=== PATIENT | male | born 1955 | race Two or more races ===

== ENCOUNTER 2025-03-06 16:40 | Inpatient (IN) | payer MEDICARE, MEDICAID ==
[~2025-03-06] VITALS: Ht 190.5 cm; Wt 110.0 kg
[2025-03-06] MEDS: ACETYLCYSTEINE 200MG/ML 20% VIAL 4ML INH SCH (12:34)
[2025-03-06 18:19] LABS: CHLORIDE 98 mEq/L (98-107); SODIUM 138 mEq/L (136-145)
[2025-03-06 18:20] LABS: BASOPHILS % 0.3 % (0.0-2.0); CALCIUM 9.1 mg/dL (8.7-10.4); CARBON DIOXIDE 32 mEq/L (21-32); EOSINOPHILS % 1.5 % (0.0-5.0); HEMATOCRIT. 39.4 % (42.0-52.0); HEMOGLOBIN. 13.3 g/dL (14.0-18.0); LYMPHOCYTES % 15.3 % (20.0-50.0); MEAN CORPUSCULAR HEMOGLOBIN 29.6 pg (28.0-32.0); MEAN CORPUSCULAR HGB CONC 33.9 g/dL (31.0-37.0); MEAN CORPUSCULAR VOLUME 87.5 fL (80.0-94.0); MEAN PLATELET VOLUME 9.1 fl (7.4-10.4); MONOCYTES % 9.1 % (2.0-8.0); NEUTROPHILS % 73.8 % (40.0-76.0); PLATELET 280 x1000/uL (130-400); RED CELL DISTRIBUTION WIDTH 14.5 % (11.6-14.6); WHITE BLOOD COUNT 10.2 x1000/uL (4.5-11.0)
[2025-03-06 18:25] LABS: GLUCOSE 117 mg/dL (70-105); UREA NITROGEN BLOOD 32 mg/dL (9-23)
[2025-03-06 18:27] LABS: TROPONIN I HIGH SENSITIVITY 39 ng/L (3.0-53)
[2025-03-06 18:35] LABS: POTASSIUM 2.6 mEq/L (3.5-5.1)
[2025-03-06] MEDS ORDERED: POTASSIUM ACETATE IV ONE (19:15)
[2025-03-06] MEDS ORDERED: MAGNESIUM/ALUMINUM HYDROXIDE/SIMETHICONE 30ML UDC PO PRN (20:00)
[2025-03-06] MEDS ORDERED: DOCUSATE SODIUM 100MG CAPSULE PO PRN (20:00)
[2025-03-06] MEDS ORDERED: ACETAMINOPHEN 325MG TABLET PO PRN (20:00)
[2025-03-06] MEDS ORDERED: ONDANSETRON HCL 4MG/2ML INJ IV PRN (20:00)
[2025-03-06] MEDS: POTASSIUM CHLORIDE 20MEQ TABLET SR PO SCH (20:02)
[2025-03-06] MEDS: KCL 20MEQ/100ML X 2 FOR TOTAL KCL 40MEQ/200ML IV SCH (20:03)
[2025-03-06] MEDS: SODIUM CHLORIDE 0.9% 1,000 ML IV ONE (21:11)
[2025-03-06] MEDS: GUAIFENESIN-DM 200MG-20MG/10ML UDC PO SCH (21:11)
[2025-03-06] MEDS ORDERED: IOHEXOL-350 100 ML BOTTLE ONE (23:47)
[2025-03-07] VITALS (8 sets, daily range): BP systolic 117–161; BP diastolic 75–95; PULSE 64–77; RESP 16–20; TEMP 36.2–36.7; O2SAT 94–98
[2025-03-07] MEDS: IPRATROPIUM/ALBUTEROL 0.5-3(2.5)MG/3ML NEB HHN PRN (00:35)
[2025-03-07] MEDS: GUAIFENESIN 200MG/10ML SUGAR FREE UDC PO PRN (06:08)
[2025-03-07] MEDS: PANTOPRAZOLE 40MG DR TABLET PO SCH (06:41)
[2025-03-07 08:20] LABS: HEMATOCRIT. 39.1 % (42.0-52.0); HEMOGLOBIN. 13.1 g/dL (14.0-18.0); MEAN CORPUSCULAR HEMOGLOBIN 29.5 pg (28.0-32.0); MEAN CORPUSCULAR HGB CONC 33.5 g/dL (31.0-37.0); MEAN CORPUSCULAR VOLUME 88.1 fL (80.0-94.0); PLATELET 297 x1000/uL (130-400); RED BLOOD CELL COUNT 4.44 mill/uL (4.7-6.1); RED CELL DISTRIBUTION WIDTH 14.7 % (11.6-14.6); WHITE BLOOD COUNT 9.8 x1000/uL (4.5-11.0)
[2025-03-07 08:21] LABS: DIFFERENTIAL COMMENT 1
[2025-03-07 08:40] LABS: HEPATITIS B SURFACE ANTIGEN NEGATIVE (Negative)
[2025-03-07 08:49] LABS: CARBON DIOXIDE 33 mEq/L (21-32); CHLORIDE 97 mEq/L (98-107); POTASSIUM 3.3 mEq/L (3.5-5.1); SODIUM 137 mEq/L (136-145)
[2025-03-07 08:55] LABS: CREATININE 1.6 mg/dL (0.6-1.3); GLUCOSE 123 mg/dL (70-105); TRIGLYCERIDE 118 mg/dL (0-150); UREA NITROGEN BLOOD 28 mg/dL (9-23)
[2025-03-07 08:56] LABS: LDL CHOLESTEROL 89 mg/dL (5-100)
[2025-03-07 08:57] LABS: CHOLESTEROL 136 mg/dL (<200); HDL CHOLESTEROL 24 mg/dL (>55); PHOSPHORUS 3.7 mg/dL (2.5-4.9)
[2025-03-07 08:58] LABS: T4 FREE 1.44 ng/dL (0.89-1.76); THYROID STIMULATING HORMONE 0.87 uIU/mL (0.55-4.78)
[2025-03-07 09:01] LABS: HEPATITIS C AB NON REACTIVE (Neg) (Negative)
[2025-03-07] MEDS ORDERED: CLONIDINE 0.1MG TABLET PO PRN (09:15)
[2025-03-07] MEDS: AZITHROMYCIN 500MG/250ML 250 ML IV SCH (09:30)
[2025-03-07] MEDS: CEFTRIAXONE 1GM/50ML 50 ML IV SCH (09:30)
[2025-03-07] MEDS: ENOXAPARIN 40MG/0.4ML SYR SUBCUT SCH (09:30)
[2025-03-07] MEDS: POTASSIUM CHLORIDE 20MEQ TABLET SR PO SCH (09:45)
[2025-03-07] MEDS: SODIUM CHLORIDE 0.9% 1,000 ML IV SCH (09:45)
[2025-03-07] MEDS: AMLODIPINE 10MG TABLET PO SCH (09:45)
[2025-03-07 10:49] LABS: PLATELET ESTIMATE NORMAL
[2025-03-07 11:55] LABS: PROTHROMBIN TIME 10.9 sec (9.6-11.0)
[2025-03-07 17:06] LABS: IRON 35 ug/dL (65-175)
[2025-03-07 17:09] LABS: TOTAL IRON BINDING CAPACITY 507 ug/dl (250-425)
[2025-03-07] MEDS ORDERED: HYDRALAZINE 20MG/ML VIAL IV SCH (18:00)
[2025-03-07 19:04] LABS: CLARITY URINE CLEAR (CLEAR); COLOR URINE YELLOW (YELLOW); GLUCOSE URINE NEGATIVE (NEGATIVE); KETONES URINE NEGATIVE (NEGATIVE); LEUKOCYTE ESTERASE URINE NEGATIVE (NEGATIVE); NITRITE URINE POSITIVE (NEGATIVE); OCCULT BLOOD URINE NEGATIVE (NEGATIVE); PROTEIN URINE 1+ (NEGATIVE); SPECIFIC GRAVITY URINE 1.024 (1.005-1.030)
[2025-03-07 19:15] LABS: BACTERIA URINE NONE SEEN; RBC URINE 0-2 /hpf (0-2); SQUAMOUS EPITHELIAL CELL URINE 1+ /lpf (RARE/1+); WBC URINE 0-2 /hpf (0-2)
[2025-03-07] MEDS: ACETAMINOPHEN 325MG TABLET PO PRN (21:01)
[2025-03-08] VITALS (8 sets, daily range): BP systolic 129–163; BP diastolic 65–90; PULSE 55–81; RESP 18–20; TEMP 36.6–36.7; O2SAT 94–98
[2025-03-08] MEDS: HYDRALAZINE 20MG/ML VIAL IV PRN (05:24)
[2025-03-08 06:09] LABS: POTASSIUM 3.6 mEq/L (3.5-5.1)
[2025-03-08 06:10] LABS: CALCIUM 8.9 mg/dL (8.7-10.4)
[2025-03-08 06:14] LABS: CREATININE 1.4 mg/dL (0.6-1.3)
[2025-03-08 06:27] LABS: HEMATOCRIT. 39.6 % (42.0-52.0); HEMOGLOBIN. 13.2 g/dL (14.0-18.0); MEAN CORPUSCULAR HEMOGLOBIN 29.2 pg (28.0-32.0); MEAN CORPUSCULAR HGB CONC 33.3 g/dL (31.0-37.0); MEAN CORPUSCULAR VOLUME 87.8 fL (80.0-94.0); MEAN PLATELET VOLUME 8.9 fl (7.4-10.4); PLATELET 348 x1000/uL (130-400); RED BLOOD CELL COUNT 4.51 mill/uL (4.7-6.1); RED CELL DISTRIBUTION WIDTH 15.2 % (11.6-14.6); WHITE BLOOD COUNT 8.9 x1000/uL (4.5-11.0)
[2025-03-08 06:56] LABS: DIFFERENTIAL COMMENT 1
[2025-03-08] MEDS: PNEUMOCOCCAL 20-VAL CONJ-DIP CRM 0.5ML IM ONE (09:00)
[2025-03-08] MEDS: HYDRALAZINE HCL 25MG TABLET PO SCH (09:17)
[2025-03-08 13:25] LABS: BG BASE EXCESS 7.6 mmol/L (-2.0-3.0); BG CARBOXYHEMOGLOBIN 1.1 % (0.5-1.5); BG DEOXYHEMOGLOBIN 6.4 % (0.0-5.0); BG FRACTION INSPIRED OXYGEN 21; BG HCO3 ACT 30.3 mmol/L (21.0-28.0); BG OXYGEN SATURATION 93.5 % (94.0-98.0); BG OXYHEMOGLOBIN 92.5 % (94.0-98.0); BG PCO2 36.3 mmHg (35.0-48.0); BG PO2 60.6 mmHg (83.0-108.0); BG SAMPLE SITE RIGHT RADIAL; BG TOTAL HEMOGLOBIN 14.1 g/dL (13.5-17.5); BG VENT MODE ROOM AIR
[2025-03-08] MEDS ORDERED: HYDR25TA78 PO (13:50)
[2025-03-08] MEDS ORDERED: AMLO10TA80 PO (13:50)
[2025-03-08] MEDS ORDERED: AMOX1TAB15 MT (13:50)
[2025-03-08] MEDS ORDERED: AZIT500T8 MT (13:50)
[2025-03-08] MEDS ORDERED: FERR325T6 MT (13:50)
[2025-03-08] MEDS ORDERED: PANT40TA51 PO (13:50)
[2025-03-08 14:17] LABS: PLATELET ESTIMATE NORMAL
== END 2025-03-08 15:16 | disposition home health service (06) | DRG 193 ==
LOC: ER 16:40 → 8WST 19:02 → EDBEDREQ 19:31 → ENRESERV 19:55
PROVIDERS: ADMIT Hospitalist; ATTEND Hospitalist
DX: J12.9 Viral pneumonia, unspecified (principal); J96.01 Acute respiratory failure with hypoxia; N17.0 Acute kidney failure with tubular necrosis; J44.1 Chronic obstructive pulmonary disease with (acute) exacerbation; D64.9 Anemia, unspecified; E87.6 Hypokalemia; E78.5 Hyperlipidemia, unspecified; F17.210 Nicotine dependence, cigarettes, uncomplicated; I13.10 Hypertensive heart and chronic kidney disease without heart failure, with stage 1 through stage 4 chronic kidney disease, or unspecified chronic kidney disease; N18.9 Chronic kidney disease, unspecified; Z79.899 Other long term (current) drug therapy
CPT/HCPCS: 36415; 36600; 71045; 71275; 80048; 80061; 81003; 82375; 82728; 82805; 83036; 83540; 83550; 83735; 83880; 84100; 84439; 84443; 84484; 85025; 85379; 86705; 87070; 87340; 93005; 94070; 94640; 94664; 98960; 99285; J0360; J0456; J0696; J1650; J3480; J3490; J7030; J7608; Q9967